=== PATIENT | male | born 2000 | race Caucasian/White ===

== ENCOUNTER 2019-01-22 14:36 | Emergency (ER) | payer BC ==
--- NOTE | 2019-01-22 16:47 | ED ---
GI/ HPI - HPI Summary HPI Summary: The patient is a 18 y/o M presenting to [facility] with a chief complaint of nausea, vomiting, and diarrhea gradually worsening since this morning at 1030. He reports that he ate pasta last night that he didnt make, and he woke up this morning with diarrhea. Throughout the day, he developed nausea and then had six episodes of vomiting. He endorses chills but denies fevers. Currently, his symptoms are rated 4/10 in severity. There are no aggravating or alleviating factors. He is not having diarrhea anymore. PMHx: asthma. Nonsmoker, no EtOH, no substance use. Medications reviewed. Allergies noted. - History of Current Complaint Chief Complaint: EDNauseaVomitDiarrh Time Seen by Provider: 01/22/19 16:37 Stated Complaint: VOMITING, COLD Hx Obtained From: Patient Onset/Duration: Started Hours Ago, Still Present Timing: Lasting Hours Severity: Moderate Current Severity: Moderate Pain Intensity: 4 Associated Signs and Symptoms: Positive: Nausea, Vomiting, Diarrhea, Chills. Negative: Fever Aggravating Factor(s): Nothing Alleviating Factor(s): Nothing - Allergy/Home Medications Allergies/Adverse Reactions: Allergies Allergy/AdvReac Type Severity Reaction Status Date / Time cephalexin [From Keflex] Allergy Unknown Verified 01/22/19 14:41 Reaction Details Penicillins Allergy Rash Verified 01/22/19 14:41 Sulfa (Sulfonamide Allergy Unknown Verified 01/22/19 14:41 Antibiotics) Reaction Details PMH/Surg Hx/FS Hx/Imm Hx Endocrine/Hematology History: Denies: Hx Diabetes Cardiovascular History: Denies: Hx Hypercholesterolemia, Hx Hypertension Respiratory History: Reports: Hx Asthma - "mild" Sensory History: Denies: Hx Legally Blind, Hx Deafness Opthamlomology History: Denies: Hx Legally Blind EENT History: Denies: Hx Deafness - Surgical History Surgical History: None Surgery Procedure, Year, and Place: none Infectious Disease History: No Infectious Disease History: Denies: Traveled Outside the [place] in Last 30 Days - Family History Known Family History: Negative: Diabetes - Social History Alcohol Use: None Hx Substance Use: No Substance Use Type: Reports: None Hx Tobacco Use: No Smoking Status (MU): Never Smoked Tobacco Review of Systems Positive: Chills. Negative: Fever Positive: Vomiting, Diarrhea, Nausea All Other Systems Reviewed And Are Negative: Yes Physical Exam - Summary Physical Exam Summary: VITAL SIGNS: Reviewed. GENERAL: Patient is a well-developed and nourished (MALE OR FEMALE) who is lying comfortable in the stretcher. Patient is not in any acute respiratory distress. HEAD AND FACE: No signs of trauma. No ecchymosis, hematomas or skull depressions. No sinus tenderness. EYES: PERRLA, EOMI x 2, No injected conjunctiva, no nystagmus. EARS: Hearing grossly intact. Ear canals and tympanic membranes are within normal limits. MOUTH: Oropharynx within normal limits. NECK: Supple, trachea is midline, no adenopathy, no JVD, no carotid bruit, no c- spine tenderness, neck with full ROM. CHEST: Symmetric, no tenderness at palpation. LUNGS: Clear to auscultation bilaterally. No wheezing or crackles. CVS: Regular rate and rhythm, S1 and S2 present, no murmurs or gallops appreciated. ABDOMEN: Soft, non-tender. No signs of distention. No rebound, no guarding, and no masses palpated. Increased bowel sounds. EXTREMITIES: FROM in all major joints, no edema, no cyanosis or clubbing. NEURO: Alert and oriented x 3. No acute neurological deficits. Speech is normal and follows commands. SKIN: Dry and warm. Triage Information Reviewed: Yes Vital Signs On Initial Exam: Initial Vitals Temp Pulse Resp BP Pulse Ox 98.7 F 106 18 137/92 97 01/22/19 14:39 01/22/19 14:39 01/22/19 14:39 01/22/19 14:39 01/22/19 14:39 Vital Signs Reviewed: Yes Procedures - Sedation Patient Received Moderate/Deep Sedation with Procedure: No Diagnostics - Vital Signs Vital Signs Temp Pulse Resp BP Pulse Ox 01/22/19 14:39 98.7 F 106 18 137/92 97 - Laboratory Result Diagrams: 01/22/19 17:19 01/22/19 17:19 Lab Statement: Any lab studies that have been ordered have been reviewed, and results considered in the medical decision making process. - Radiology Abdomen X-Ray Radiology Interpretation Completed By: Radiologist Summary of Radiographic Findings: Impression: Negative exam. ED physician has reviewed this report. Re-Evaluation - Re-Evaluation First Eval Re-Evaluation Time: 18:55 Change: Improved Comment: He is feeling better. We discussed results and plan for discharge. GIGU Course/Dx - Course Assessment/Plan: This patient is a 18-year-old male who presents to the emergency department with chief complaints of nausea and vomiting. He reports that he thinks that he has food poisoning. In the ED course, the patient was given IV fluids, Zofran for nausea and vomiting, and Pepcid for discomfort in the epigastric area. Blood work without any significant abnormality except for WBCs of 15.5, hemoglobin of 18.8, hematocrit of 54, absolute neutrophils of 14.3 , carbon dioxide of 19, glucose of 110, magnesium of 1.6 for which the patient was given magnesium IV, total bilirubin of 1.5, and CRP of 10.5. Abdominal x- ray impression: Negative exam. Patient is still mildly nauseous; therefore, the patient was given Reglan. After these medications the patient's symptoms have resolved. The patient was able to tolerate fluids without any nausea and vomiting. Therefore the patient will be discharged home with follow-up with primary care physician. I discussed all the findings and test results with the patient. Patient was instructed to return to the emergency room immediately if any of the symptoms return worsens. Plan of care was discussed with the patient and understands and agrees. All questions were answered at patient satisfaction. There were no further complaints or concerns. Lung exam before discharge: CTA B/L. Good air exchange. No wheezing or crackles heard. CVS: S1 and S2 present. No murmurs appreciated. Patient is alert and oriented x 3. Patient is hemodynamically stable. Patient will be discharged home with follow up PCP in the next 2-3 days - Diagnoses Differential Diagnoses - Male: Diarrhea, Gastritis, Gastroenteritis (Bacterial) , Gastroenteritis (Viral) Provider Diagnoses: Nausea vomiting and diarrhea Discharge ED - Sign-Out/Discharge Documenting (check all that apply): Patient Departure - Patient will be discharged home. - Discharge Plan Condition: Stable Disposition: HOME Prescriptions: Metoclopramide TAB* [Reglan TAB*] 10 mg PO Q8H PRN #10 tab PRN Reason: Vomiting Patient Education Materials: Acute Nausea and Vomiting (ED), Acute Diarrhea (ED ) Referrals: [facility] - Lennox MARTINES [Primary Care Provider] - 3 Days Additional Instructions: Please take medication as prescribed. Follow up with your primary care provider in 2-3 days. Return to the emergency department for any new or worsening symptoms. - Billing Disposition and Condition Condition: STABLE Disposition: Home - Attestation Statements Document Initiated by Kaylen: Yes Documenting Scribe: Farida Slaughter Provider For Whom Kaylen is Documenting (Include Credential): Dr. Manuel Mead MD Scribe Attestation: Farida Arias scribed for Dr. Manuel Mead MD on 01/23/19 at 0731. Scribe Documentation Reviewed: Yes Provider Attestation: The documentation as recorded by the Farida kay accurately reflects the service I personally performed and the decisions made by me, Dr. Manuel Mead MD Status of Scribe Document: Viewed
[2019-01-22] MEDS ORDERED: Ondansetron INJ* 2 MG/ML VIAL IV ONE (16:48)
[2019-01-22] MEDS ORDERED: NS 0.9% 1000 ML** 2,000 ML IV ONE (16:48)
[2019-01-22] MEDS ORDERED: Famotidine IV* 10 MG/ML 2 ML (20 mg) IV ONE (16:48)
[2019-01-22 17:28] LABS: ABS Basophils 0.1 10^3/ul (0-0.2); ABS Lymphocytes 0.3 10^3/ul (1.0-4.8); ABS Monocytes 0.8 10^3/ul (0-0.8); ABS Neutrophils 14.3 10^3/ul (1.5-7.7); Eosinophil % 0.3 %; Hematocrit 54 % (42-52); Hemoglobin 18.8 g/dL (14.0-18.0); Lymphocyte % 2.2 %; Mean Corpuscular HGB Conc 35 g/dL (31-36); Mean Corpuscular Hemoglobin 30 pg (27-31); Mean Corpuscular Volume 85 fL (80-94); Mean Platelet Volume 8.3 fL (7.4-10.4); Platelet Count 297 10^3/uL (150-450); Red Blood Count 6.37 10^6 /uL (4.18-5.48); Red Cell Distribution Width 13 % (10-15); White Blood Count 15.5 10^3/uL (3.5-10.8)
[2019-01-22 17:46] LABS: ALT 57 U/L (7-52); AST 25 U/L (13-39); Albumin 4.7 g/dL (3.2-5.2); Albumin/Globulin Ratio 1.6 (1-3); Alkaline Phosphatase 73 U/L (34-104); Anion Gap 11 mmol/L (2-11); BUN/Creatinine Ratio 22.2 (8-20); Blood Urea Nitrogen 20 mg/dL (6-24); C Reactive Protein 10.59 mg/L (<8.01); CO2 Carbon Dioxide 19 mmol/L (22-32); Calcium 9.7 mg/dL (8.6-10.3); Chloride 105 mmol/L (101-111); EGFR African American 130.2 (>60); EGFR Non-African American 107.6 (>60); Glucose 110 mg/dL (70-100); Magnesium 1.6 mg/dL (1.9-2.7); Potassium 4.5 mmol/L (3.5-5.0); Sodium 135 mmol/L (135-145); Total Protein 7.7 g/dL (6.4-8.9)
[2019-01-22] MEDS ORDERED: Magnesium Sulfate 1 GM IV* 1 GM/100 ML BAG IV ONE (18:08)
[2019-01-22] MEDS ORDERED: Metoclopramide IV* 5 MG/ML 2 ML VIAL IV ONE (18:15)
[2019-01-22] MEDS ORDERED: Acetaminophen TAB* 325 MG PO ONE (18:35)
[2019-01-22 19:45] VITALS: BP 121/73
== END 2019-01-22 19:45 | disposition home or self-care (01) ==
LOC: ED 14:36
DX: R11.2 Nausea with vomiting, unspecified (principal); R19.7 Diarrhea, unspecified; Z88.0 Allergy status to penicillin; Z88.1 Allergy status to other antibiotic agents; Z88.2 Allergy status to sulfonamides
CPT/HCPCS: 36415; 74019; 80053; 83605; 83690; 83735; 85025; 86140; 96361; 96365; 96375; 99282; A9270-GY; J2405; J2765; J3475